=== PATIENT | female | born 1955 ===

== ENCOUNTER 2023-06-23 08:54 | Day surgery (SDC) | payer MEDICARE, OTHER ==
[~2023-06-23] VITALS: Ht 152.4 cm; Wt 69.9 kg
[2023-06-23] MEDS ORDERED: ALBU90OI (10:11)
[2023-06-23] MEDS ORDERED: ABILIFY MYCITE10 M2 (10:11)
[2023-06-23] MEDS ORDERED: LORA10ER (10:11)
[2023-06-23] MEDS ORDERED: DULO60 (10:12)
[2023-06-23] MEDS ORDERED: BASAGLAR K100 UNIT/1 (10:12)
[2023-06-23] MEDS ORDERED: GABA300 (10:12)
[2023-06-23] MEDS ORDERED: FLONASE SENSIM5.9 M1 (10:12)
[2023-06-23] MEDS ORDERED: FURO20 (10:13)
[2023-06-23] MEDS ORDERED: JARDIANCE10 MG (10:13)
[2023-06-23] MEDS ORDERED: METO100 (10:13)
[2023-06-23] MEDS ORDERED: LEVOTHYROXINE150 MC9 (10:13)
[2023-06-23] MEDS ORDERED: POTA10T (10:14)
[2023-06-23] MEDS ORDERED: MORP15ER (10:14)
[2023-06-23] MEDS ORDERED: TOPI25 (10:14)
[2023-06-23] MEDS ORDERED: ACET325 (10:14)
[2023-06-23] MEDS ORDERED: TRAZ100 (10:14)
[2023-06-23] MEDS ORDERED: ERTAPENEM1 G6 (10:15)
[2023-06-23] MEDS ORDERED: ABILIFY MYCITE15 M2 (10:15)
[2023-06-23] MEDS ORDERED: TRAMADOL HCL E100 M2 (10:16)
[2023-06-23 12:11] VITALS: BP 134/62
== END 2023-06-23 12:19 | disposition home or self-care (01) ==
LOC: ORSCSDS 08:54 → ORD 01-20 09:30 → ORSCSDS 01-20 09:30
PROVIDERS: Internal Medicine Gastroenterology
PROC: 0DB78ZX Excision of Stomach, Pylorus, Via Natural or Artificial Opening Endoscopic, Diagnostic (ICD-10-PCS; principal; 2023-06-23 11:30)
PROC: 0DBM8ZX Excision of Descending Colon, Via Natural or Artificial Opening Endoscopic, Diagnostic (ICD-10-PCS; principal; 2023-06-23 11:30)
DX: K62.5 Hemorrhage of anus and rectum (principal); K74.60 Unspecified cirrhosis of liver; K29.70 Gastritis, unspecified, without bleeding; K76.6 Portal hypertension; K31.89 Other diseases of stomach and duodenum; D12.4 Benign neoplasm of descending colon; K57.30 Diverticulosis of large intestine without perforation or abscess without bleeding; K64.4 Residual hemorrhoidal skin tags; E11.9 Type 2 diabetes mellitus without complications; E03.9 Hypothyroidism, unspecified; I10 Essential (primary) hypertension; I48.0 Paroxysmal atrial fibrillation; Z79.84 Long term (current) use of oral hypoglycemic drugs; Z79.4 Long term (current) use of insulin; Z79.899 Other long term (current) drug therapy; J44.9 Chronic obstructive pulmonary disease, unspecified; I25.2 Old myocardial infarction; I50.9 Heart failure, unspecified
CPT/HCPCS: 82947; 88305; 88342; A9270; J0461; J1642; J2001; J2405; J2704; J7120; Q9968